=== PATIENT | female | born 1965 | race Caucasian/White ===

== ENCOUNTER 2017-01-26 15:39 | Emergency (ER) | payer MEDICAID ==
[~2017-01-26] VITALS: Ht 157.5 cm; Wt 39.9 kg
[~2017-01-26 15:39] MED LIST changes: -MUCINEX1200 MG PO; -OMNICEF 300 MG300 MG PO; -PRAVACHOL20 MG PO; -PREDNISONE 5MG.5 MG PO; -PROMETHAZINE D118 ML PO
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
--- OUTSIDE RECORDS SUMMARY | 2017-01-26 15:53 | External Medical Summary Rpt ---
Author Author DAVE Smith, [employer] Organization [employer] Address Unknown Phone Unavailable
--- OUTSIDE RECORDS SUMMARY | 2017-01-26 15:53 | External Medical Summary Rpt | CCD ---
Author Author , DAVE Organization DAVE Address Unknown Phone [email or web address] Immunization Name Date Rout CVX Reac Dose Comm Prov Is Faci e tion ent ider Refu lity Give sed n Infl 10-1 150 0.5 Hist [facility] No [facility] uenz 9-20 mL oric 1 1 a 15 al Quad Info Inj rmat ion - Sour ce Unsp ecif ied
--- OUTSIDE RECORDS SUMMARY | 2017-01-26 15:53 | External Medical Summary Rpt | CCD ---
Author Author , DAVE Organization DAVE Address Unknown Phone [email or web address] Immunization Name Date Rout CVX Reac Dose Comm Prov Is Faci e tion ent ider Refu lity Give sed n Infl 10-1 150 0.5 Hist [facility] No [facility] uenz 9-20 mL oric 1 1 a 15 al Quad Info Inj rmat ion - Sour ce Unsp ecif ied
[2017-01-26] MEDS ORDERED: PREDNISONE 5MG.5 MG PO (15:58)
[2017-01-26] MEDS ORDERED: PRAVACHOL20 MG PO (15:59)
[2017-01-26] MEDS ORDERED: MUCINEX1200 MG PO (16:15)
[2017-01-26] MEDS ORDERED: OMNICEF 300 MG300 MG PO (16:15)
[2017-01-26] MEDS ORDERED: PROMETHAZINE D118 ML PO (16:15)
--- NOTE | 2017-01-26 16:16 | Urgent Treatment Center Report ---
History of Present Issue Date/Time Seen by Provider 01/26/17 5125 Visit Reason Pt arrived:Walked Presenting Problem:PT C/O COUGH AND SORE THROAT FOR 2 WEEKS. PT SEEN DOCTOR LAST WEDNESDAY BUT FEELS WORSE. Location if Accident: Onset of symptoms date/time:/ or onset unknown for:MEDICAL HX UNKNOWN Have you (or family members/close friends) recently traveled outside the [place]? N If Yes, where/when: Have you had exposure to infectious disease within the past month? TB? Other? Specify: Patient state that she has been having cough and congestion for several weeks that has continue to get worse State that she has been on 2 rounds of antibiotics but has not helped State that she isn't feeling any better. State that she come in today to get checked ou to see if she needed something else ALLERGIES Coded Allergies: aspirin (01/19/17) codeine (01/06/16) propoxyphene (01/06/16) tramadol (01/06/16) Home Medications Active Scripts Meloxicam (Mobic 7.5MG) 1 TAB PO DAILY #30 TAB Ref 2 Prov: 01/19/17 Reported Medications IBUPROFEN (Motrin 600MG) 600 MG PO TID #90 Quetiapine Fumarate 25 MG PO DAILY #30 Trazodone Hcl (Trazodone HCl) 100 MG PO QHSP PRN SLEEP #30 Multiple Vitamin (Multi Vitamins) 1 TAB PO DAILY PAROXETINE HCL (Paroxetine Hcl) 20 MG PO DAILY #30 Estradiol 1 MG PO DAILY #30 Megestrol Acetate (Megace Oral Susp) 400 MG PO BID #300 Gabapentin (Gabapentin 600MG) 600 MG PO TID #90 Omeprazole (Omeprazole 40MG) 40 MG PO DAILY #30 Pantoprazole Sodium 40 MG PO DAILY #30 Prednisone (Prednisone 5MG) 5 MG PO BID #55 Pravastatin Sodium (Pravachol) 20 MG PO QHS #30 Discontinued Reported Medications VARENICLINE TARTRATE (Chantix) 1 TAB PO BID #53 DC: 01/19/17 1453 History Medical History General CAD? No Angina: No VT: No Hypertension? Yes Hyperlipidemia? Yes CHF? No DVT? No PE? No COPD? Yes Asthma? No Anemia? No GERD? Yes Gastric ulcers? No GI Bleed? No Hernia? Yes Thyroid Problems? No Hypothyroidism? No CVA? No Seizures? No Diabetes? No Renal Insuffiency? No UTI? No Stones? No BPH? No GB Disease: Yes Nephritic Syndrome? No Asplenia? No Hepatitis? No Sickle Cell Disease? No Arthritis? Yes Migraines? No Cataracts? No Glaucoma? No MRSA? No HIV? No TB? No Anxiety? Yes Depression? Yes Cancer? Yes Site: CERVICAL Immunization HX DT/Tetanus 1-4 YRS Flu 1986-4042 Pneumonia NEVER Surgical Hx Previous Surgery?Y Tubal Ligation L BREAST LUMPECTOMY RT. BREAST LUMPECTOMY LEEP PROCEDURE HYSTERECTOMY Exploratory Laparoscopy LEFT KNEE SCOPE DOUBLE VENTRAL HERNIA GALLBLADDER Family History Family HX Diabetes Yes CAD Yes Hypertension Yes Hyperlipidemia Yes Cancer Yes TB No Social History Smoking Hx Smoker: Former Smoker Tobacco: Yes Type Cigarettes Packs/day < 1 Pack Alcohol Alcohol: Yes Review of Systems All Other Systems Reviewed and Negative Physical Exam Vital Signs Vital Signs Date Time Temp Pulse Resp B/P Pulse O2 O2 Flow FiO2 Ox Delivery Rate 01/26 1552 99.3 121 20 148/99 96 General Appearance normal appearance, WD/WN, no apparent distress Ear, Nose, Throat sinus pain/drainage, nasal congestion, Throat red, irritated, drainage noted Respiratory Status Yes: trachea midline, chest symmetrical, non tender chest. No: respiratory distress. Lung Sounds bilateral: wheezing. Cardiovascular normal exam, regular rate/rhythm, no peripheral edema Neurologic alert, normal exam, oriented x 3 Medical Decision Making LABS/Meds/Orders Pt receiving controlled substance in ED? No Results/Orders Current Medication Orders Sig/Partha Start time Last Medication Dose Route Stop Time Status Admin Albuterol/Ipratropium 3 ML ONCE ONE 01/26 1615 DC 01/26 INH 01/26 161 1612 Albuterol/Ipratropium 0 .STK-MED ONE 01/26 1607 DC INH Orders Procedure Date/time Status RT REQUEST DUONEB 01/26 1605 Active UTC STREP SCREEN 01/26 1602 Active Departure Departure Time of Disposition 1604 Disposition DC Home or Self Care(routine) Clinical Impression Primary Impression: Upper respiratory infection Qualifiers: URI type: unspecified URI Qualified Code: J06.9 - Acute upper respiratory infection, unspecified Condition STABLE Referrals STAN KNOWLES APRN (Family) Patient Instructions Cough, Sore Throat Additional Instructions * Monitor Temp. Tylenol and/or Ibuprofen as needed. ER if fever is no less than 101 despite alternating Tylenol and Ibuprofen * Encourage fluids, water, Gatorade, powerade, pedialyte if infant/toddler/or child * Warm salt water gargles for throat irritation *Warm fluids *Sore throat lozenges *Sleep elevated *humidifier or vaporizer Lots of rest Increase fluids, water, Gatorade, powerade *Your throat swab was sent to lab for culture. Those results area typically sent to your primary care physician. Be sure to follow up in 2-3 days if no improvement so they can review those results and treat if necessary If you dont have primary care I recommend you get one, but in the mean time you will have to return to a walk in clinic Follow up IMMEDIATELY for new or worsening of symptoms OR no noticeable improvement over the next 48-72 hours. 911 immediately for any life threatening symptoms such as chest pain or difficulty breathing Discharge Counseling Counseled pt/family regarding diagnosis, test results, medications/RX, home care, follow up needs Prescriptions Current Visit Scripts CEFDINIR (Cefdinir) 300 MG PO BID #20 CAP PROMETHAZINE/DEXTROMETHORPHAN (Promethazine-Dm Syrup) 5 ML PO Q6HP PRN cough #120 SYR Guaifenesin (Mucinex) 1,200 MG PO BID #10 TER at 1632
[2017-01-26 16:27] VITALS: BP 148/99
== END 2017-01-26 16:27 | disposition home or self-care (01) ==
LOC: UTC 15:39
DX: J06.9 Acute upper respiratory infection, unspecified (principal); Z87.891 Personal history of nicotine dependence; I10 Essential (primary) hypertension; E78.5 Hyperlipidemia, unspecified; J44.9 Chronic obstructive pulmonary disease, unspecified; Z88.6 Allergy status to analgesic agent

== ENCOUNTER → 2017-01-26 | Outpatient (CLI) | payer MEDICAID ==
[~2017-01-26] MED LIST: ALPRAZOLAM0.5 M3 PO; BACTRIM DS 8001 TAB PO; BENTYL10 MG OR; CHANTIX START M1 TAB PO; CIPRO 500MG TA500 MG PO; DARVOCET-N 1001 EACH PO; DARVOCET-N6 EACH/PAK PO; DEMEROL HYDROCH50 MG NG; ESTRACE0.5 MG OR; ESTRADIOL1 M1 PO; FLEXERIL10 M1 PO; FLEXERIL10 MG PO; GABAPENTIN 600600 MG PO; HYDROCODONE1 TABLET PO; IBU-8800 MG PO; IBU600 MG PO; IBU800 M1 PO; KEFLEX 500MG.500 MG PO; LORTAB 5/500 501 TAB PO; LORTAB 500 MG-71 TAB PO; MEDROL 4MG. DOSE4 MG PO; MEGACE LIQUI40 MG/ML PO; MELOXICAM7.5 MG PO; MOBIC7.5 MG PO; MOTRIN 600MG.600 MG PO; MOTRIN800 MG PO; MUCINEX1200 MG PO; MULTI VITAMINS1 TAB PO; NAPROSYN 500MG500 MG PO; NEURONTIN 100100 MG PO; OMEPRAZOLE40 MG PO; OMNICEF 300 MG300 MG PO; ONDANSETRON 4MG4 M1 PO; PANTOPRAZOLE SO40 M1 PO; PAROXETINE HCL20 MG PO; PEN-VK500 MG PO; PERCOCET 5/3251 EACH PO; PHENERGAN 25MG.25 M1 PO; PRAVACHOL20 MG PO; PREDNISONE 5MG.5 MG PO; PROMETHAZINE D118 ML PO; QUETIAPINE FUMA25 M1 PO; SKELAXIN 800MG800 MG PO; TIZANIDINE HCL 44 MG NG; TRAMADOL 50MG T50 MG PO; TRAZADONE HYDR100 MG PO; Tramadol HCl50 MG PO; ULTRACET 325 MG1 TAB PO; ULTRAM 50 MG TA50 MG PO; ULTRAM ER100 MG PO; ULTRAM50 MG PO; VIBRAMYCIN 100100 MG PO; VICODIN 5/500 T1 TAB PO; VOLTAREN75 MG PO; ZANTAC 300300 MG PO
[2017-01-26 16:53] LABS: LYMPH # 1.5 K/mm3 (0.7-4.5); LYMPH % 8.9 % (10-50.0)
[2017-01-26 16:57] LABS: HEMOGLOBIN 11.3 g/dL (12.2-16.2)
[2017-01-26 17:29] LABS: NEUTROPHILS 92 % (42-76)
[2017-01-26 18:01] LABS: BUN 11 mg/dL (7-18)
[2017-01-26 18:17] LABS: GFR (ESTIMATED) 48 ML/MIN (59-)
== END ==
LOC: LAB 15:24
PROVIDERS: Surgery
DX: R10.13 Epigastric pain (principal)

== ENCOUNTER → 2017-02-03 | Outpatient (CLI) | payer MEDICAID ==
[~2017-02-03] MED LIST changes: +MUCINEX1200 MG PO; +OMNICEF 300 MG300 MG PO; +PRAVACHOL20 MG PO; +PREDNISONE 5MG.5 MG PO; +PROMETHAZINE D118 ML PO
--- NOTE | 2017-02-03 09:31 | RADIOLOGY REPORT PS360 ---
KNEE-4 OR 5 VIEWS-LT HISTORY: LT KNEE PAIN ORDERING PHYSICIAN: MANI DAVIS MD PATIENT AGE: 51 years COMPARISON: 12/28/2014 FINDINGS: Weightbearing views are obtained along with sunrise view patella. No fracture or dislocation. No lytic or blastic change. Normal mineralization. No significant arthritic changes evident. There are at least 2 intra-articular calcified loose bodies or synovial osteochondromas in the posterior knee joint measuring 16 and 9 mm. IMPRESSION: 1. 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 2. Otherwise negative
== END ==
LOC: RAD 08:40
DX: M25.562 Pain in left knee (principal)

== ENCOUNTER 2017-02-06 04:55 | Emergency (ER) | payer MEDICAID ==
[~2017-02-06] VITALS: Ht 157.5 cm; Wt 40.8 kg
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
--- OUTSIDE RECORDS SUMMARY | 2017-02-06 06:00 | External Medical Summary Rpt | CCD ---
Demographics Preferred Language Welsh Marital Status Unknown Buddhist Affiliation Unknown Race Unknown Ethnic Group Unknown Author Author , DAVE ACOSTA Address Unknown Phone Immunization Unable to retrieve immunization data due to connection failure with Immunization Registry. Please try again later.
--- OUTSIDE RECORDS SUMMARY | 2017-02-06 06:00 | External Medical Summary Rpt | CCD ---
Demographics Preferred Language Macedonian Marital Status Unknown Jainism Affiliation Unknown Race Unknown Ethnic Group Unknown Author Author , DAVE ACOSTA Address Unknown Phone Immunization Unable to retrieve immunization data due to connection failure with Immunization Registry. Please try again later.
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
--- OUTSIDE RECORDS SUMMARY | 2017-02-06 06:01 | External Medical Summary Rpt ---
Author Author DAVE Smith, DAVE [employer] Address Unknown Phone Unavailable Results Streptococcus pyogenes Ag [Presence] in Unspecified specimen Observa Value Referen Units Interpr Notes Date tion ce etation Range Strepto NOT NOTDETE No No LOT # Jan 27 coccus DETECTE CTED informa informa @[id number] pyogene D tion in tion in 7 EXP 10:17 s Ag source source DATE AM [Presen data data @ ce] in 8-24 Unspeci fied specime n Comprehensive metabolic 2000 panel in Serum or Plasma Observa Value Referen Units Interpr Notes Date tion ce etation Range Albumin/G 1.1 - 1.8 No Low No Jan 26 lobulin informati informati 2016 3:26 [Mass on in on in PM ratio] in source source Serum or data data Plasma Albumin 3.4 - 5.0 gm/dL Low No Jan 26 [Mass/vol informati 2016 3:26 ume] in on in PM Serum or source Plasma data Alkaline 46 - 116 U/L Normal No Jan 26 phosphata informati 2016 3:26 se on in PM [Enzymati source c data activity/ volume] in Serum or Plasma Bilirubin 0.2 - 1.0 mg/dL Low No Jan 26 .total informati 2016 3:26 [Mass/vol on in PM ume] in source Serum or data Plasma Urea 7 - 18 mg/dL Normal No Jan 26 nitrogen informati 2016 3:26 [Mass/vol on in PM ume] in source Serum or data Plasma Calcium 8.5 - mg/dL Normal No Jan 26 [Mass/vol 10.1 informati 2017 3:26 ume] in on in PM Serum or source Plasma data Chloride 98 - 107 mmoL/L High No Jan 26 [Moles/vo informati 2017 3:26 lume] in on in PM Serum or source Plasma data Carbon 21.0 - mmoL/L Normal No Jan 26 dioxide, 32.0 informati 2017 3:26 total on in PM [Moles/vo source lume] in data Serum or Plasma Creatinin 0.55 - mg/dL High No Jan 26 e 1.02 2016 3:26 [Mass/vol on in PM ume] in source Serum or data Plasma Estimated 59- ML/MIN Low REFERENCE Jan 26 RANGE: 2016 3:26 glomerula >60 PM r ML/MIN/1. filtratio 73 SQUARE n rate METERSIf (GF this patient is -A merican, then multiply theresult by 1.210. Globulin 1.3 - 3.2 gm/dL High No Jan 26 [Mass/vol informati 2016 3:26 ume] in on in PM Serum source data Glucose 74 - 106 mg/dL High No Jan 26 [Mass/vol informati 2016 3:26 ume] in on in PM Serum or source Plasma data Potassium 3.5 - 5.1 mmoL/L Normal No Jan 262016 3:26 [Moles/vo on in PM lume] in source Serum or data Plasma Sodium 136 - 145 mmoL/L Normal Jan 26 [Moles/vo ati 2016 3:26 lume] in on in PM Serum or source Plasma data Aspartate 15 - 37 U/L Normal No Jan 262016 3:26 aminotran on in PM sferase source [Enzymati data c activity/ volume] in Serum or Plasma Alanine 12 - 78 U/L Normal No Jan 26 aminotran ati 2016 3:26 sferase on in PM [Enzymati source c data activity/ volume] in Serum or Plasma Protein 6.4 - 8.2 gm/dL Normal Jan 26 [Mass/vol informati 2016 3:26 ume] in on in PM Serum or source Plasma data CBC W Auto Differential panel in Blood Observa Value Referen Units Interpr Notes Date tion ce etation Range Basophils 0 - 0.2 K/MM3 Normal No Jan 26ati 2016 3:26 [#/volume on in PM ] in source Blood by data Automated count Basophils 0.1 - 2.0 % Normal No Jan 26 /100 informati 2016 3:26 leukocyte on in PM s in source Blood by data Automated count Eosinophi 0.0 - 0.4 K/mm3 Normal No Jan 26 ls ati 2016 3:26 [#/volume on in PM ] in source Blood by data Automated count Eosinophi 0.1 - % Normal No Jan 26 ls/100 12.0 informati 2016 3:26 leukocyte on in PM s in source Blood by data Automated count Granulocy 1.8 - 7.8 K/mm3 High No Jan 26 damaris informati 2016 3:26 [#/volume on in PM ] in source Blood by data Automated count Granulocy 37.0 - % High Jan 26 damaris/100 80.0 informati 2016 3:26 leukocyte on in PM s in source Blood by data Automated count Hematocri 37.0 - % Low No Jan 26 t [Volume 47.0 informati 2016 3:26 on in PM Fraction] source of Blood data Hemoglobi 12.2 - g/dL Low No Jan 26 n 16.2 informati 2016 3:26 [Mass/vol on in PM ume] in source Blood data Lymphocyt 0.7 - 4.5 K/mm3 Normal No Jan 26 es informati 2016 3:26 [#/volume on in PM ] in source Unspecifi data ed specimen by Automated count Lymphocyt 10 - 50.0 % Low No Jan 26 es informati 2016 3:26 [#/volume on in PM ] in source Unspecifi data ed specimen by Automated count Erythrocy 27 - 31.2 pg Normal No Jan 26 te mean informati 2016 3:26 corpuscul on in PM ar source hemoglobi data n [Entitic mass] Erythrocy 31.8 - g/dl Normal No Jan 26 te mean 35.4 informati 2016 3:26 corpuscul on in PM ar source hemoglobi data n concentra tion [Mass/vol ume] by Automated count Erythrocy 82.2 - fl Normal No Jan 26 te mean 97.8 informati 2016 3:26 corpuscul on in PM ar volume source [Entitic data volume] by Automated count Monocytes 0.1 - 1.0 K/mm3 Normal No Jan 26 informati 2016 3:26 [#/volume on in PM ] in source Blood by data Automated count Monocytes 1.7 - 9.3 % Normal No Jan 26 /100 informati 2017 3:26 leukocyte on in PM s in source Blood by data Automated count Platelet 7.4 - fl Normal No Jan 26 mean 10.4 informati 2016 3:26 volume on in PM [Entitic source volume] data in Blood by Automated count Platelets 142 - 424 K/mm3 High No Jan 26 informati 2016 3:26 [#/volume on in PM ] in source Blood data Erythrocy 4.2 - 5.4 M/mm3 Low No Jan 26 damaris informati 2016 3:26 [#/volume on in PM ] in source Amniotic data fluid Erythrocy 11.5 - % Normal No Jan 26 te 17.5 informati 2016 3:26 distribut on in PM ion width source [Entitic data volume] by Automated count Leukocyte 4.8 - K/MM3 High No Jan 26 s 10.8 informati 2016 3:26 [#/volume on in PM ] in source Blood data Differential panel, method unspecified - Observa Value Referen Units Interpr Notes Date tion ce etation Range Neutrophi 0 - 8 % Normal No Jan 26 ls.band informati 2016 3:26 form/100 on in PM leukocyte source s in data Blood by Automated count LYMPH 4 10 - 50 % Low No Jan 262016 tion in 3:26 PM source data Monocytes 2 - 9 % Normal No Jan 26 / informati 2016 3:26 leukocyte on in PM s in source Blood by data Automated count Platele SLIGHT No No No No Jan 26 ts INCREAS informa informa informa informa 2016 [Presen E tion in tion in tion in tion in 3:26 PM ce] in source source source source Blood data data data data by Light microsc opy Neutrophi 42 - 76 % High No Jan 26 ls informati 2016 3:26 [#/volume on in PM ] in source Blood by data Automated count Cells No #CELLS No No Jan 26 Counted informati informati informati 2016 3:26 Total [#] on in on in on in PM in Blood source source source data data data
--- OUTSIDE RECORDS SUMMARY | 2017-02-06 06:01 | External Medical Summary Rpt ---
Author Author DAVE Smith, DAVE [employer] Address Unknown Phone Unavailable Results Streptococcus pyogenes Ag [Presence] in Unspecified specimen Observa Value Referen Units Interpr Notes Date tion ce etation Range Strepto NOT NOTDETE No No LOT # Jan 27 coccus DETECTE CTED informa informa @[id number] pyogene D tion in tion in 7 [...]
--- NOTE | 2017-02-06 06:08 | Emergency Room Report ---
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 N Clinical Suspician of Infection? N Mental Status: 2 - Mildly Altered Sepsis Risk:Severe Sepsis Risk Have you (or family members/close friends) recently traveled outside the [place]? N If Yes, where/when: Have you had exposure to infectious disease within the past month? N TB? Other? Specify: Source patient, RN notes reviewed, family, EMS, old records Exam Limitations no limitations Comment pt found by ems with dec mental status and responded to narcan - she reports drug use - Cardiac Chest Pain Chest pain indicative of cardiac No Timing/Duration this morning Severity moderate ALLERGIES Coded Allergies: aspirin (01/19/17) codeine (01/06/16) propoxyphene (01/06/16) tramadol (01/06/16) Home Medications Active Scripts CEFDINIR (Cefdinir) 300 MG PO BID #20 CAP Prov: 01/26/17 PROMETHAZINE/DEXTROMETHORPHAN (Promethazine-Dm Syrup) 5 ML PO Q6HP PRN cough #120 SYR Prov: 01/26/17 Guaifenesin (Mucinex) 1,200 MG PO BID #10 TER Prov: 01/26/17 Meloxicam (Mobic 7.5MG) 1 TAB PO DAILY #30 TAB Ref 2 Prov: 01/19/17 Reported Medications IBUPROFEN (Motrin 600MG) 600 MG PO TID #90 Quetiapine Fumarate 25 MG PO DAILY #30 Trazodone Hcl (Trazodone HCl) 100 MG PO QHSP PRN SLEEP #30 Multiple Vitamin (Multi Vitamins) 1 TAB PO DAILY PAROXETINE HCL (Paroxetine Hcl) 20 MG PO DAILY #30 Estradiol 1 MG PO DAILY #30 Megestrol Acetate (Megace Oral Susp) 400 MG PO BID #300 Gabapentin (Gabapentin 600MG) 600 MG PO TID #90 Omeprazole (Omeprazole 40MG) 40 MG PO DAILY #30 Pantoprazole Sodium 40 MG PO DAILY #30 Prednisone (Prednisone 5MG) 5 MG PO BID #55 Pravastatin Sodium (Pravachol) 20 MG PO QHS #30 History Medical History General CAD? No Angina: No UT: No Hypertension? Yes Hyperlipidemia? Yes CHF? No DVT? No PE? No COPD? Yes Asthma? No Anemia? No GERD? Yes Gastric ulcers? No GI Bleed? No Hernia? Yes Thyroid Problems? No Hypothyroidism? No CVA? No Seizures? No Diabetes? No Renal Insuffiency? No End Stage Renal Disease? No UTI? No Stones? No BPH? No GB Disease: Yes Nephritic Syndrome? No Asplenia? No Hepatitis? No Sickle Cell Disease? No Arthritis? Yes Migraines? No Cataracts? No Glaucoma? No MRSA? No HIV? No TB? No Anxiety? Yes Depression? Yes Cancer? Yes Site: CERVICAL Immunization Hx DT/Tetanus 1-4 YRS Flu [id number] Pneumonia NEVER Surgical Hx Previous Surgery?Y Tubal Ligation L BREAST LUMPECTOMY RT. 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 Respiratory see HPI, cough, denies shortness of breath, denies wheezing Cardiovascular denies chest pain, denies syncope Gastrointestinal denies abdominal pain, denies vomiting Genitourinary denies: dysuria, frequency, hesitancy, hematuria. Musculoskeletal denies back pain, denies joint pain, denies joint swelling, denies neck pain Skin denies rash Psychiatric/Neurological see HPI, denies seizure, other Physical Exam Vital Signs Vital Signs Date Time Temp Pulse Resp B/P Pulse O2 O2 Flow FiO2 Ox Delivery Rate 02/07 652 97.9 110 20 132/114 98 02/06 0614 105 24 161/108 97 02/06 0611 93.7 108 22 92 10 02/06 0555 90.8 105 22 92 10 02/06 0540 88.0 74 26 112/74 86 10 - WBC >12,000 or <4,000 or 10% bands? 2 or more SIRS Criteria Met? B/P:132/114 MAP:86 Creatinine >2.0? UA output<0.5ml/kg/hr for 2 hrs? Platelet count >100,000? Lactate >2.0mmol/1? INR >1.2 or PTT > than 60 sec? Evidence of Organ Dysfunction? Provider documented clinical suspician of infection? N Sepsis Criteria Count: 2 Sepsis Risk: Severe Sepsis Risk General Appearance no apparent distress Eye Exam - bilateral eye PERRL, bilateral eye EOMI Ear, Nose, Throat normal ENT inspection, no evid of tongue biting Neck supple Respiratory Status No: respiratory distress. Lung Sounds bilateral: decreased breath sounds. 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 No Results/Orders Laboratory Tests 02/06/17 0600: Opiates Screen POSITIVE H, Urine Methadone Screen NEGATIVE, Barbiturates NEGATIVE, Phencyclidine Screen NEGATIVE, Amphetamines Screen POSITIVE H, Benzodiazepines Screen POSITIVE H, Cocaine Screen POSITIVE H, Marijuana (THC) Screen POSITIVE H 02/06/17 0600: Sodium 134 L, Potassium 3.9, Chloride 97 L, Carbon Dioxide 21 L, BUN 28 H, Creatinine 1.8 H, Estimated Creat Clear 24 L, Estimated GFR (MDRD) 30 L, Glucose 89, Calcium 9.2, Total Bilirubin 0.2, AST 23, ALT 22, Alkaline Phosphatase 116, Creatine Kinase 171, CK-MB (CK-2) Rel Index 4.6 H, CK and CKMB Interp 7.9 H, Troponin I < 0.02, Total Protein 8.5 H, Albumin 3.7, Globulin 4.8 H, Albumin/Globulin Ratio 0.8 L, WBC 22.9 *H, RBC 4.59, Hgb 13.9, Hct 42.4 , MCV 92.4, RDW 15.6, Plt Count 448 H, MPV 7.3 L, Gran % 92.2 H, Gran # 21.1 H, Total Counted 100, Lymphocytes % 5.0 L, Monocytes % 1.7, Eosinophils % 1.1, Basophils % 0.1, Neutrophils 92 H, Band Neutrophils 1, Lymphocytes (Manual) 3 L, Lymphocytes # 1.1, Monocytes (Manual) 4, Monocytes # 0.4, Eosinophils # 0.2, Basophils # 0.0, Platelet Estimate SLIGHT INCREASE, PUBS MCHC 33.2, MCH 30.7, Salicylates 4.3, Acetaminophen 0 L, Alcohols 0, Urine Color YELLOW, Urine Appearance CLEAR, Urine pH 5.5, Ur Specific Ehrenberg >= 1.030, Urine Protein 1+ H, Urine Ketones NEGATIVE, Urine Blood TRACE-INTACT, Urine Nitrate NEGATIVE, Urine Bilirubin NEGATIVE, Urine Urobilinogen 0.2, Ur Leukocyte Esterase NEGATIVE , Urine WBC OCC, Amorphous Sediment OCC, Urine Bacteria TRACE, Urine Glucose NEGATIVE Current Medication Orders Sig/Partha Start time Last Medication Dose Route Stop Time Status Admin Sodium Chloride 10 ML PRN PRN 02/06 545 AC IV 02/07 531 Orders Procedure Date/time Status DIFFERENTIAL-WBC 02/06 600 Complete CHEST-PORTABLE 02/06 531 Active IV SALINE LOCK 02/06 531 Active URINALYSIS/COMPLETE 02/06 531 Complete SALICYLATE 02/06 531 Complete DRUG ABUSE SCREEN (TRIAGE) 02/06 531 Complete COMPLETE METABOLIC PANEL 02/06 531 Complete CBC WITH AUTO DIFF 02/06 531 Complete CARDIAC ENZYMES 02/06 531 Complete ALCOHOL 02/06 531 Complete Acetaminophen 02/06 531 Complete XRAY/CT/US XRAY/CT/US XRAY chest XR interpretation by reviewed by me Xray Results abnormal (copd) Departure Departure Time of Disposition 08 Disposition DC Home or Self Care(routine) Clinical Impression Primary Impression: Heroin overdose Qualifiers: Encounter type: initial encounter Injury intent: undetermined intent Qualified Code: T40.1X4A - Poisoning by heroin, undetermined, initial encounter Secondary Impressions: Cocaine abuse, Renal insufficiency Condition STABLE Patient Instructions DI for Drug Abuse and Drug Addiction Additional Instructions fluids and see pcp about rehab ED Critical Care Critical Care No at 0812
[2017-02-06 06:14] LABS: LYMPH # 1.1 K/mm3 (0.7-4.5)
[2017-02-06 06:17] LABS: URINE BILIRUBIN - DIPSTICK NEGATIVE (NEG); URINE BLOOD TRACE-INTACT (NEG)
[2017-02-06 06:25] LABS: HEMOGLOBIN 13.9 g/dL (12.2-16.2)
[2017-02-06 06:47] LABS: BUN 28 mg/dL (7-18)
[2017-02-06 06:49] LABS: GFR (ESTIMATED) 30 ML/MIN (59-)
[2017-02-06 06:50] LABS: AMPHETAMINES/METAMPHETAMINES POSITIVE ng/mL (<1000)
[2017-02-06 07:00] LABS: NEUTROPHILS 92 % (42-76)
[2017-02-06 08:44] VITALS: BP 132/114
--- NOTE | 2017-02-08 23:17 | RADIOLOGY REPORT PS360 ---
CHEST-PORTABLE Ordering Physician: Basilia Clark MD Patient Age: 51 years: Female HISTORY: sob TECHNIQUE: AP portable chest. All COMPARISON : Lungs hyperexpanded but clear with no acute findings. No significant change since previous chest film 01/06/2016.. Nor March 2015. Heart normal size.. Normal pulmonary vascularity. No pleural effusion. No pneumothorax. Chest wall unremarkable. Slight lucency along left heart border believe may reflects the region of the vascular markings. No mediastinal air felt to be present IMPRESSION . nothing definite acute. COPD. Hyperexpansion. On final review note a tiny 5 mm nodular density seen just above the anterior third rib & projected over the inferior right scapula. Warrants. This was not definitely seen before and could merely be artifact overlying the patient regarding multiple densities here... Unlikely significant doubtful significance, but would encourage a follow-up PA & lateral chest in 2 months to further evaluate
[2017-02-23] MEDS ORDERED: PREDNISONE 10MG10 MG PO (15:55)
[2017-02-23] MEDS ORDERED: ZITHROMAX Z PA250 MG PO (15:55)
== END 2017-02-06 08:44 | disposition home or self-care (01) ==
LOC: ER 04:55
PROVIDERS: Emergency Medicine
DX: T40.1X1A Poisoning by heroin, accidental (unintentional), initial encounter (principal)